=== PATIENT | female | born 1965 | race American Indian/Alaskan Native ===

== ENCOUNTER 2017-08-29 05:52 | Inpatient (IN) | payer OTHER ==
[2017-08-28 13:28] VITALS: BMI 33.7
--- NOTE | 2017-08-29 07:03 | CP.PCM.HP ---
History of Present Illness - History of Present Illness History of Present Illness: PMD: Dr Arvizu Orthopedist: Dr parker Chief Complaint: Left knee pain HPI: 51 years old female here for an elective left Total Knee Replacement. She has hx of HLD, HTN, and painful left knee arthritis since 2012 for which she was treated with intra-arterial injections, Physical therapy, analgesics and had Arthroscopic surgery to the left knee twice but still has pains. Because she has failed conservative management for the left knee arthritis she saw her Orthopedist and will left knee replacement. PSH: HTN; HLD; Arthritis of the left knee PSH: Hysterectomy; Cesarian section X1; Tummy Tuck; Arthroscopic surgery X2 to the left knee SH: Never smoked; Occasional alcohol; No illegal drug use; Live with family; work in [employer]: States: no known family hx Allergies: NDA Mediation: Reviewed Present on Admission - Present on Admission Any Indicators Present on Admission: No History of DVT/PE: No History of Uncontrolled Diabetes: No Urinary Catheter: No Decubitus Ulcer Present: No Review of Systems - Constitutional Constitutional: absent: Anorexia, Chills, Fever, Lethargy - EENT Eyes: Requires Corrective Lenses. absent: Floaters, Itchy Eyes, Sees Flashes Ears: absent: Decreased Hearing, Ear Discharge, Ear Pain Nose/Mouth/Throat: absent: Epistaxis, Nasal Congestion, Sinus Pain, Sinus Pressure - Cardiovascular Cardiovascular: absent: Chest Pain, Dyspnea, Edema - Respiratory Respiratory: absent: Cough, Dyspnea, Wheezing, Stridor - Gastrointestinal Gastrointestinal: absent: Constipation, Diarrhea, Nausea, Vomiting - Genitourinary Genitourinary: absent: Dysuria, Flank Pain, Hematuria, Urinary Frequency - Musculoskeletal Musculoskeletal: Arthralgias - Integumentary Integumentary: absent: Pruritus, Rash, Skin Ulcer, Sores, Striae, Swelling - Neurological Neurological: absent: Confusion, Dizziness, Focal Weakness, Weakness - Psychiatric Psychiatric: absent: Anxiety, Depression, Panic Attacks - Endocrine Endocrine: absent: Palpitations, Polydipsia, Polyphagia, Polyuria - Hematologic/Lymphatic Hematologic: absent: Easy Bleeding, Easy Bruising Past Patient History - Past Medical History & Family History Past Medical History?: Yes - Past Social History Smoking Status: Never Smoked Chewing Tobacco Use: No Cigar Use: No Alcohol: Occasional Home Situation {Lives}: With Family - CARDIAC Hx Cardiac Disorders: Yes Hx Hypertension: Yes - PULMONARY Hx Respiratory Disorders: No - NEUROLOGICAL Hx Neurological Disorder: No - HEENT Hx HEENT Problems: No - RENAL Hx Chronic Kidney Disease: No - ENDOCRINE/METABOLIC Hx Endocrine Disorders: No - HEMATOLOGICAL/ONCOLOGICAL Hx Blood Disorders: No - INTEGUMENTARY Hx Dermatological Problems: No - MUSCULOSKELETAL/RHEUMATOLOGICAL Hx Musculoskeletal Disorders: Yes Hx Arthritis: Yes (knee) - GASTROINTESTINAL Hx Gastrointestinal Disorders: No - GENITOURINARY/GYNECOLOGICAL Hx Genitourinary Disorders: No - PSYCHIATRIC Hx Psychophysiologic Disorder: No - SURGICAL HISTORY Hx Surgeries: Yes Hx Arthroscopy: Yes (left knee) Hx Section: Yes Hx Hysterectomy: Yes Other/Comment: tummy tuck - ANESTHESIA Hx Anesthesia: Yes Hx Anesthesia Reactions: No Has any member of the family had a problem w/ anesthesia?: Yes Meds Allergies/Adverse Reactions: Allergies Allergy/AdvReac Type Severity Reaction Status Date / Time No Known Allergies Allergy Verified 08/28/17 13:28 Physical Exam - Constitutional Appears: No Acute Distress - Head Exam Head Exam: ATRAUMATIC, NORMAL INSPECTION, NORMOCEPHALIC - Eye Exam Eye Exam: EOMI, Normal appearance Pupil Exam: NORMAL ACCOMODATION, PERRL - ENT Exam ENT Exam: Mucous Membranes Moist, Normal Exam - Neck Exam Neck exam: Positive for: Full Rom, Normal Inspection. Negative for: Lymphadenopathy, Tenderness - Respiratory Exam Respiratory Exam: Clear to Auscultation Bilateral. absent: Rales, Rhonchi, Wheezes - Cardiovascular Exam Cardiovascular Exam: REGULAR RHYTHM, RRR, +S1, +S2. absent: Gallop - GI/Abdominal Exam GI & Abdominal Exam: Normal Bowel Sounds, Soft. absent: Mass, Organomegaly, Tenderness - Rectal Exam Rectal Exam: Deferred - Extremities Exam Extremities exam: Positive for: full ROM, normal inspection. Negative for: calf tenderness, pedal edema - Back Exam Back exam: NORMAL INSPECTION. absent: CVA tenderness (L), CVA tenderness (R) - Neurological Exam Neurological exam: Alert, CN II-XII Intact, Oriented x3, Reflexes Normal - Psychiatric Exam Psychiatric exam: Normal Affect, Normal Mood - Skin Skin Exam: Dry, Intact, Normal Color, Warm Results - Labs Result Diagrams: 08/29/17 06:40 Assessment & Plan - Assessment and Plan (Free Text) Assessment: #. Osteoarthritis of the left Knee #. HTN #. HLD Plan: 51 years old female here for an elective left Total Knee Replacement. She has hx of HLD, HTN, and painful left knee arthritis since 2012. Because she has failed conservative management for the left knee arthritis she saw her Orthopedist and will left knee replacement. #. Osteoarthritis of the left Knee - Consult Orthopedic Dr Parker - Orthopedic management #. HTN - Lisinopril - follow Blood Presires #. HLD - Simvastatin #. DVT management with Lovenox startind08/29/17 #. Code Status: Full - Date & Time Date: 08/29/17 Time: 07:03
[2017-08-29 07:08] LABS: BASO % 0.7 % (0.0-2.0); EOS # 0.2 K/uL (0.0-0.7); EOS % 4.4 % (0.0-4.0); HEMOGLOBIN 12.9 g/dL (12.0-16.0); LYMPH # 1.3 K/uL (1.0-4.3); LYMPH % 33.1 % (20.0-40.0); MEAN CELL VOLUME 85.8 fl (81.0-99.0); MEAN CORPUSCULAR HEMOGLOBIN 28.1 pg (27.0-31.0); MEAN CORPUSCULAR HGB CONC 32.7 g/dL (33.0-37.0); MEAN PLATELET VOLUME 8.1 fl (7.2-11.7); MONO # 0.5 K/uL (0.0-0.8); MONO % 13.9 % (0.0-10.0); NEUT # 1.9 K/uL (1.8-7.0); NEUT % 47.9 % (50.0-75.0); NRBC % 0.2 % (0.0-0.0); RBC 4.61 Mil/uL (3.80-5.20); RED CELL DISTRIBUTION WIDTH 14.5 % (11.5-14.5); WHITE BLOOD COUNT 3.9 K/uL (4.8-10.8)
[2017-08-29] MEDS ORDERED: Midazolam 2 MG/2 ML VIAL ONE (09:02)
[2017-08-29] MEDS ORDERED: Propofol 10 mg/ml Inj (20 ML) ONE (09:02)
[2017-08-29] MEDS ORDERED: Rocuronium 10 mg/ml (5 ml) ONE ×3 (09:03→11:18)
[2017-08-29] MEDS ORDERED: Neostigmine 1:1000 (1 mg/ml) Inj ONE (09:03)
[2017-08-29] MEDS ORDERED: Lidocaine 4% (Laryng-O-Jet) Kit MM ONE (09:03)
[2017-08-29] MEDS ORDERED: Succinylcholine 200 mg/10 ml Inj IV ONE (09:03)
[2017-08-29] MEDS ORDERED: Sevoflurane - Inhalation Anesthetic Liq (250 ml) ONE (09:07)
[2017-08-29] MEDS ORDERED: Lactated Ringer's 1,000 ML IV ONE ×3 (09:15→10:15)
[2017-08-29] MEDS ORDERED: methylPREDNISolone Depo 80 mg/ml Inj ONE (09:36)
[2017-08-29] MEDS ORDERED: Bacitracin Ointment 30 GM TUBE ONE (09:37)
[2017-08-29] MEDS ORDERED: Absorbable Gelatin Sponge Size 100 ONE (09:38)
[2017-08-29] MEDS ORDERED: Thrombin Topical 5,000 Int Units Spray Kit ONE (09:38)
[2017-08-29] MEDS ORDERED: Phenylephrine 10 mg/ml Inj ONE (10:29)
[2017-08-29] MEDS ORDERED: Morphine 4 MG/ML VIAL IVP STA (13:28)
[2017-08-29] MEDS ORDERED: Morphine 4 MG/ML VIAL ONE (13:36)
[2017-08-29] MEDS ORDERED: Lactated Ringer's 1,000 ML IV SCH (13:45)
--- NOTE | 2017-08-29 14:47 | RAD ---
PROCEDURE: Left Knee Radiographs. HISTORY: Pain. COMPARISON: None. FINDINGS: The patient is status post total left knee arthroplasty with prosthetic components seen in good alignment. A small amount expected air and fluid is seen within suprapatellar bursa. Skin kenneth are seen anteriorly. IMPRESSION: Status post total left knee arthroplasty.
[2017-08-29 15:30] LABS: ALB/GLOB RATIO 0.9 (1.0-2.1); ALBUMIN 3.6 g/dL (3.5-5.0); ALT/SGPT 43 U/L (9-52); AST/SGOT 39 U/L (14-36); BLOOD UREA NITROGEN 15 mg/dl (7-17); CALCIUM 9.9 mg/dL (8.4-10.2); GFR AFRICAN-AMERICAN > 60; GFR NON-AFRICAN AMERICAN 53
[2017-08-29] MEDS: Lactated Ringer's 1,000 ML IV SCH (16:52)
--- NOTE | 2017-08-29 17:00 | PCM.SURG1 ---
Surgeon's Initial Post Op Note - Surgeon's Notes Surgeon: Keith Helpdesk Analyst: LUIS Kuo/ 2nd assist Shay Sharp Type of Anesthesia: General Endo, Spinal Anesthesia Administered By: DR webb Pre-Operative Diagnosis: severe tricompartmental O/A L knee. morbid obesity Operative Findings: severe tricomparmtnetal O/A L knee. tricomp[artmental synovitis. posterior capsule contracture. lateral patella contracture Post-Operative Diagnosis: as above Operation Performed: L TKR. anterior/post synovectomy. posterior capsule release. lateral patella release. computer navigatioapplx wound vac ([place]) drain Specimen/Specimens Removed: synovium/cartilage/bone Estimated Blood Loss: EBL {In ML}: 35 Blood Products Given: N/A Drains Used: Wound Vac Post-Op Condition: Good Date of Surgery/Procedure: 08/29/17 Time of Surgery/Procedure: 10:30 ( time in room 9:38/anesthesia indcution time 9 :38)
[2017-08-29] MEDS: ceFAZolin 2 GM in Sodium Chloride 0.9% 100 ML IVPB SCH (18:28)
[2017-08-30] MEDS: ceFAZolin 2 GM in Sodium Chloride 0.9% 100 ML IVPB SCH (01:26)
[2017-08-30] MEDS: Lactated Ringer's 1,000 ML IV SCH ×3 (01:28→19:36)
[2017-08-30 07:12] LABS: HEMOGLOBIN 11.4 g/dL (12.0-16.0); MEAN CELL VOLUME 85.8 fl (81.0-99.0); MEAN CORPUSCULAR HEMOGLOBIN 27.6 pg (27.0-31.0); MEAN CORPUSCULAR HGB CONC 32.2 g/dL (33.0-37.0); RBC 4.12 Mil/uL (3.80-5.20); RED CELL DISTRIBUTION WIDTH 14.8 % (11.5-14.5); WHITE BLOOD COUNT 5.2 K/uL (4.8-10.8)
[2017-08-30 07:33] LABS: BLOOD UREA NITROGEN 12 mg/dl (7-17); CALCIUM 9.5 mg/dL (8.4-10.2); GFR AFRICAN-AMERICAN > 60; GFR NON-AFRICAN AMERICAN > 60
[2017-08-30] MEDS: Enoxaparin 40 mg Syringe SC SCH (08:33)
--- NOTE | 2017-08-30 08:37 | CP.PCM.PN ---
Subjective - Date & Time of Evaluation Date of Evaluation: 08/30/17 Time of Evaluation: 10:00 - Subjective Subjective: Patient seen and examined bedside. Lying in bed in NAD.pain is controlled. on POINT OF SALE ASSOCIATE pump and appears sleepy. Hemodynamically stable, afebrile. unable to sleep overnight. Objective - Vital Signs/Intake and Output Vital Signs (last 24 hours): Temp Pulse Resp BP Pulse Ox 98.8 F 74 20 112/67 97 08/30/17 07:59 08/30/17 07:59 08/30/17 07:59 08/30/17 07:59 08/30/17 07:59 - Medications Medications: Current Medications Acetaminophen (Tylenol 325mg Tab) 650 mg PO Q4 PRN PRN Reason: Fever 101 degrees fahrenheit Docusate Sodium (Colace) 100 mg PO BID [facility] Last Admin: 08/30/17 08:33 Dose: 100 mg Enoxaparin Sodium (Lovenox) 40 mg SC DAILY [facility] PRN Reason: Protocol Last Admin: 08/30/17 08:33 Dose: 40 mg Lactated Ringer's (Lactated Ringer's) 1,000 mls @ 100 mls/hr IV .Q10H [facility] Last Admin: 08/30/17 01:28 Dose: 100 mls/hr Lactated Ringer's (Lactated Ringer's) 1,000 mls @ 100 mls/hr IV .Q10H [facility] Last Admin: 08/29/17 16:53 Dose: Not Given Morphine Sulfate (Morphine Manager Floral 1 Mg/Ml) 30 mg IV PRN PRN; Protocol PRN Reason: Pain, moderate (4-7) Last Admin: 08/30/17 07:43 Dose: 30 mg Ondansetron HCl (Zofran Inj) 4 mg IVP ONCE PRN PRN Reason: Nausea/Vomiting - Labs Labs: 08/30/17 05:50 08/30/17 05:50 - Constitutional Appears: Non-toxic, No Acute Distress, Other (sleepy) - Head Exam Head Exam: ATRAUMATIC, NORMAL INSPECTION, NORMOCEPHALIC - Eye Exam Eye Exam: EOMI, Normal appearance, PERRL Pupil Exam: NORMAL ACCOMODATION - ENT Exam ENT Exam: Mucous Membranes Moist, Normal Exam - Neck Exam Neck Exam: Full ROM, Normal Inspection - Respiratory Exam Respiratory Exam: Clear to Ausculation Bilateral. absent: Rales, Rhonchi, Wheezes - Cardiovascular Exam Cardiovascular Exam: REGULAR RHYTHM, RRR, +S1, +S2. absent: JVD - GI/Abdominal Exam GI & Abdominal Exam: Soft, Normal Bowel Sounds. absent: Distended, Guarding, Tenderness, Rebound - Rectal Exam Rectal Exam: Deferred - Extremities Exam Additional comments: left leg dressing and immobilizer in place moving her toes and warm to touch - Back Exam Back Exam: NORMAL INSPECTION - Neurological Exam Neurological Exam: Alert, Awake, CN II-XII Intact, Oriented x3 Additional comments: sleepy - Psychiatric Exam Psychiatric exam: Normal Affect - Skin Skin Exam: Dry, Normal Color, Warm Assessment and Plan - Assessment and Plan (Free Text) Assessment: 51 years old femalewith PMH HTN, duylipidemia and OA presented for elective left Total Knee Replacement after failing conservative treatment.Today post op # 1 , on POINT OF SALE ASSOCIATE pump . 1. S/p Left TKR # 1 pain is controlled. Will d/c POINT OF SALE ASSOCIATE pump and start Percoset PRN PT consult Promote ambulation Ortho consult with Dr. Parker on Board received Ancef IV prophylactically Strat incentive spirometry Lovenox for DVT prophylaxis 2. HTN controlled Continue Lisinopril 3. HLD on Simvastatin 4. DVT prophylaxis Lovenox
[2017-08-30] MEDS ORDERED: Petrolatum, White 1 OZ TP SCH (09:00)
[2017-08-30] MEDS ORDERED: Enoxaparin 40 mg Syringe SC SCH (09:00)
--- NOTE | 2017-08-30 11:24 | CP.PCM.PN ---
Subjective - Date & Time of Evaluation Date of Evaluation: 08/30/17 Time of Evaluation: 11:24 - Subjective Subjective: Patient seen and examined at bedside comfortable. Pain controlled with GRANITE SETTER. Knee imm on overnight. No acute events overnight. Objective - Vital Signs/Intake and Output Vital Signs (last 24 hours): Temp Pulse Resp BP Pulse Ox 98.8 F 74 20 112/67 97 08/30/17 07:59 08/30/17 07:59 08/30/17 07:59 08/30/17 07:59 08/30/17 07:59 - Medications Medications: Current Medications Acetaminophen (Tylenol 325mg Tab) 650 mg PO Q4 PRN PRN Reason: Fever 101 degrees fahrenheit Docusate Sodium (Colace) 100 mg PO BID [facility] Last Admin: 08/30/17 08:33 Dose: 100 mg Emollient Ointment (Vaseline Oint) 1 pkt TOP QID [facility] Enoxaparin Sodium (Lovenox) 40 mg SC DAILY [facility] PRN Reason: Protocol Last Admin: 08/30/17 08:33 Dose: 40 mg Lactated Ringer's (Lactated Ringer's) 1,000 mls @ 100 mls/hr IV .Q10H [facility] Last Admin: 08/30/17 01:28 Dose: 100 mls/hr Lactated Ringer's (Lactated Ringer's) 1,000 mls @ 100 mls/hr IV .Q10H [facility] Last Admin: 08/29/17 16:53 Dose: Not Given Ondansetron HCl (Zofran Inj) 4 mg IVP ONCE PRN PRN Reason: Nausea/Vomiting Oxycodone/Acetaminophen (Percocet 5/325 Mg Tab) 1 tab PO Q4 PRN PRN Reason: Pain, moderate (4-7) Stop: 09/02/17 08:58 Oxycodone/Acetaminophen (Percocet 5/325 Mg Tab) 2 tab PO Q6 PRN PRN Reason: Pain, severe (8-10) Stop: 09/02/17 08:58 - Labs Labs: 08/30/17 05:50 08/30/17 05:50 - Extremities Exam Additional comments: L knee: Knee imm intact, dressings CDI sensation intact SP/DP/TN motor intact EHL/FHL/TA/G pedal pulses intact comp soft NT Assessment and Plan (1) Left knee DJD Assessment & Plan: POD #1 s/p L TKA doing well -CPM x 6 hrs daily as per order -knee imm only at night or at rest in bed -pain control, recommend d/c GRANITE SETTER and transition to oral meds -complete postop abx -PT/OT WBAT -d/c planning -above d/w Dr. Parker in agreement Status: Acute
[2017-08-30] MEDS: Petrolatum UD PAK TOP SCH ×4 (12:12→21:19)
[2017-08-30] MEDS: Oxycodone/Acetaminophen 5/325 mg Tab PO PRN ×3 (12:26→21:18)
[2017-08-31] MEDS: Oxycodone/Acetaminophen 5/325 mg Tab PO PRN ×3 (02:22→14:07)
[2017-08-31] MEDS: Lactated Ringer's 1,000 ML IV SCH (04:45)
[2017-08-31 06:33] LABS: MEAN CELL VOLUME 85.1 fl (81.0-99.0); MEAN CORPUSCULAR HEMOGLOBIN 28.1 pg (27.0-31.0); MEAN CORPUSCULAR HGB CONC 33.1 g/dL (33.0-37.0); RBC 3.91 Mil/uL (3.80-5.20); RED CELL DISTRIBUTION WIDTH 14.5 % (11.5-14.5); WHITE BLOOD COUNT 5.5 K/uL (4.8-10.8)
[2017-08-31 06:46] LABS: BLOOD UREA NITROGEN 9 mg/dl (7-17); CALCIUM 9.6 mg/dL (8.4-10.2); GFR AFRICAN-AMERICAN > 60; GFR NON-AFRICAN AMERICAN > 60
[2017-08-31] MEDS: Enoxaparin 40 mg Syringe SC SCH (08:10)
[2017-08-31 08:11] VITALS: PULSE 89; RESP 20
[2017-08-31] MEDS: Petrolatum UD PAK TOP SCH ×3 (08:11→17:05)
--- NOTE | 2017-08-31 08:22 | OP ---
PROCEDURE DATE: 08/29/2017 PREOPERATIVE DIAGNOSES: 1. Post-traumatic osteoarthritis of the left knee. 2. Tricompartmental osteoarthritis of the left knee. 3. Posterior capsular contracture. 4. Anterior and posterior synovitis. POSTOPERATIVE DIAGNOSES: 1. Post-traumatic osteoarthritis of the left knee. 2. Tricompartmental osteoarthritis of the left knee. 3. Posterior capsular contracture. 4. Anterior and posterior synovitis. OPERATIVE FINDINGS: 1. Post-traumatic osteoarthritis of the left knee. 2. Tricompartmental osteoarthritis of the left knee. 3. Posterior capsular contracture. 4. Anterior and posterior synovitis. PROCEDURE: 1. Left total knee replacement arthroplasty. 2. Posterior capsular release. 3. Anterior and posterior synovectomy. 4. Computer navigation. SURGEON: Wade Parker MD METAL MOLDER: Pauly Lee, certified registered nursing welder first class. SECOND POLICE COMMISSIONER: Shay Moore PA-C ANESTHESIA: General and regional anesthesia. ANESTHESIOLOGIST: Anthony Colvin MD COMPLICATIONS: No complications. DRAINS: No drains. BLOOD LOSS: Approximately 60 mL. OPERATIVE INDICATIONS: Darrius Loredo is a 51-year-old woman who has had multiple surgical procedures on the left knee. The patient had sustained an injury at work, which had necessitated multiple procedures to the left knee. The patient has developed post-traumatic osteoarthritis. Pros, cons, risks, and benefits of the surgical approach were discussed, the possibility of mechanical failure, infection, thromboembolic disease, secondary or tertiary surgery was discussed. The patient can no longer withstand the discomfort and wished the surgery to be accomplished. The patient has failed conservative management consisting of intra-articular injection, activity modification, weight loss, anti-inflammatory medication, and therapy. The patient demands the surgical procedure. Authorization has been obtained from the Department of Labor. OPERATIVE PROCEDURE: After having obtained informed consent in the above fashion, after thoroughly discussing the possibility of mechanical failure, infection, thromboembolic disease, secondary or tertiary surgery, the patient identified as Darrius Loredo, in the supine position with all bony prominences well padded. The left lower extremity was prepped and free draped in the usual fashion for lower extremity surgery. The tourniquet had been applied, but was not yet inflated. After the satisfactory induction of the anesthetic by Dr. Colvin, after having identified side, site, and procedure, a critical pause/time-out and satisfactory induction of the anesthetic, after having obtained informed consent, with the lower extremity prepped and draped, the lower extremity was exsanguinated after a critical pause/time-out with a 6-inch Esmarch bandage. The tourniquet which had been applied is inflated to 350 mmHg. This having been accomplished, the 6-inch straight midline approach was made to the knee. The skin incision was carried down to the skin and subcutaneous tissue. Medial arthrotomy was accomplished. Patella was everted. The knee was flexed. Dissection was carried around posteromedially to the direct head of the semimembranosus tendon. The tibia was dislocated anteriorly and the initial osteotomy of the arthroplasty was accomplished on the tibial side. Anterior and posterior cruciate ligaments were excised. Medial and lateral meniscectomies were accomplished. A computer navigation for alignment and geometry of the cuts was employed at this point in time. The OrthAlign anterior tibial strut was affixed to the anterior tibia with strap and pins. At this point in time, the sensor was applied and the accelerometer. Varus-valgus was adjusted after registration of the medial and lateral malleoli and after determination of the offset from the posterior insertion of the anterior cruciate ligament. The medial malleolus was identified and lateral malleolus was identified. This having been accomplished, varus-valgus set at 0 degrees, posterior slope 3.5 degrees, an initial osteotomy of the arthroplasty was accomplished on the tibial side. This having been accomplished, again, dissection was carried around to the direct head of the semimembranosus tendon. Anterior posterior cruciate ligaments were excised. The tibial cut was 10 mm below the more intact side. Tibial cut having been accomplished, attention was turned to the femur. The tibia was relocated. The distal cutting guide was applied and sensor and accelerometer for computer navigation were applied to that bracket. This having been accomplished, the hip center was found, and at that point in time, varus-valgus was set to 0 degrees on the mechanical axis and 1 degree of flexion. This having been accomplished, the formal block was sized to a #3, femoral component #3 block was affixed to distal aspect of the femur after the distal cut had been accomplished at 9 mm. Distal cut having been accomplished, sizing is to a number 3, 3 block was fixed distally. Anterior and posterior cuts were accomplished as well as chamfer cuts. Great care was taken to protect the collateral ligaments. This having been accomplished, the anterior and posterior synovectomy at this point in time was accomplished. There had been evidence of posterior capsular contracture, lamina fur mixer operator was applied, and the posterior capsule was released. This having been accomplished, the lugs were drilled for the component, and the notch was milled for the femoral trochlea. This having been accomplished, attention was turned to the tibia, guidance to rotation of the tibial component on the lateral aspect of the tibial condyle, mid malleolar axis, medial third of the tibial tuberosity. This having been accomplished, the appropriate size tibial polyethylene medial pivot was employed because of her young age and medial pivot design or sphere design was employed. The flexion/extension gap was found to be excellent and balanced and the range of motion was found to be excellent. Patella was measured to 28 mm. Freehand patella cut was accomplished, and the patella was reamed to a #2 patella. At this point in time, the patellar balance was found to be excellent. The flexion/extension balance was found to be excellent. The tibia, femur, and patella were prepared, and the appropriate size femoral component was cemented, the tibial component, and the appropriate size polyethylene patella and tibial insert. The medial tibial insert was deployed. The screw was fastened, and it was fixed. The wound was thoroughly irrigated. Closures in layers, #2 FiberWire, #1 Vicryl, 0 Vicryl, 2-0 Vicryl, and kenneth for skin. The tourniquet had been deflated after cementation was accomplished. Kannan Thacker compression dressing and knee immobilizers were applied. Wade Parker MD
--- NOTE | 2017-08-31 12:13 | CP.PCM.PN ---
Subjective - Date & Time of Evaluation Date of Evaluation: 08/31/17 Time of Evaluation: 12:10 - Subjective Subjective: Patient states pain is well controlled, Denies CP/sob/dizziness/numbness/ tingling. Objective - Vital Signs/Intake and Output Vital Signs (last 24 hours): Temp Pulse Resp BP Pulse Ox 99.7 F H 89 20 144/80 96 08/31/17 09:00 08/31/17 09:00 08/31/17 09:00 08/31/17 09:00 08/31/17 09:00 - Medications Medications: Current Medications Acetaminophen (Tylenol 325mg Tab) 650 mg PO Q4 PRN PRN Reason: Fever 101 degrees fahrenheit Docusate Sodium (Colace) 100 mg PO BID [facility] Last Admin: 08/31/17 08:10 Dose: 100 mg Emollient Ointment (Vaseline Oint) 1 pkt TOP QID [facility] Last Admin: 08/31/17 08:11 Dose: 1 pkt Enoxaparin Sodium (Lovenox) 40 mg SC DAILY [facility] PRN Reason: Protocol Last Admin: 08/31/17 08:10 Dose: 40 mg Lactated Ringer's (Lactated Ringer's) 1,000 mls @ 100 mls/hr IV .Q10H [facility] Last Admin: 08/31/17 04:45 Dose: Not Given Ondansetron HCl (Zofran Inj) 4 mg IVP ONCE PRN PRN Reason: Nausea/Vomiting Oxycodone/Acetaminophen (Percocet 5/325 Mg Tab) 1 tab PO Q4 PRN PRN Reason: Pain, moderate (4-7) Stop: 09/02/17 08:58 Last Admin: 08/31/17 08:07 Dose: 1 tab Oxycodone/Acetaminophen (Percocet 5/325 Mg Tab) 2 tab PO Q6 PRN PRN Reason: Pain, severe (8-10) Stop: 09/02/17 08:58 Last Admin: 08/31/17 02:22 Dose: 2 tab - Labs Labs: 08/31/17 05:40 08/31/17 05:40 - Extremities Exam Additional comments: +ROM toes, ensation intact, calves soft NT neg homans, +DP/PT pules left knee dressing changed, scant ssang drainage, marta reapplied, no erythema Assessment and Plan (1) Left knee DJD Assessment & Plan: POD#2 s/p left TKR ortho stable for d/c to rehab cont PT/OT cont VTE proph marta to be left intact until next 09/05 knee immob at night, remove during day d/w Dr. Parker, agrees with above, f/u 7-10 days call for appt if sent to outside rehab Status: Acute
--- NOTE | 2017-08-31 15:00 | CP.PCM.DIS ---
Provider - Provider Date of Admission: 08/29/17 13:36 Attending physician: Phoenix Taylor Primary care physician: Wade Parker III, MD Consults: ortho consult Time Spent in preparation of Discharge (in minutes): 15 Hospital Course - Lab Results Lab Results: Most Recent Lab Values WBC 5.5 K/uL (4.8-10.8) 08/31/17 05:40 RBC 3.91 Mil/uL (3.80-5.20) 08/31/17 05:40 Hgb 11.0 g/dL (12.0-16.0) L 08/31/17 05:40 Hct 33.3 % (34.0-47.0) L 08/31/17 05:40 MCV 85.1 fl (81.0-99.0) 08/31/17 05:40 MCH 28.1 pg (27.0-31.0) 08/31/17 05:40 MCHC 33.1 g/dL (33.0-37.0) 08/31/17 05:40 RDW 14.5 % (11.5-14.5) 08/31/17 05:40 Plt Count 143 K/uL (130-400) 08/31/17 05:40 MPV 8.1 fl (7.2-11.7) 08/29/17 06:40 Neut % (Auto) 47.9 % (50.0-75.0) L 08/29/17 06:40 Lymph % (Auto) 33.1 % (20.0-40.0) 08/29/17 06:40 [place] % (Auto) 13.9 % (0.0-10.0) H 08/29/17 06:40 Eos % (Auto) 4.4 % (0.0-4.0) H 08/29/17 06:40 Baso % (Auto) 0.7 % (0.0-2.0) 08/29/17 06:40 Neut # (Auto) 1.9 K/uL (1.8-7.0) 08/29/17 06:40 Lymph # (Auto) 1.3 K/uL (1.0-4.3) 08/29/17 06:40 [place] # (Auto) 0.5 K/uL (0.0-0.8) 08/29/17 06:40 Eos # (Auto) 0.2 K/uL (0.0-0.7) 08/29/17 06:40 Baso # (Auto) 0.0 K/uL (0.0-0.2) 08/29/17 06:40 Sodium 135 mmol/l (132-148) 08/31/17 05:40 Potassium 3.9 MMOL/L (3.6-5.0) 08/31/17 05:40 Chloride 97 mmol/L (98-107) L 08/31/17 05:40 Carbon Dioxide 29 mmol/L (22-30) 08/31/17 05:40 Anion Gap 13 (10-20) 08/31/17 05:40 BUN 9 mg/dl (7-17) 08/31/17 05:40 Creatinine 0.8 mg/dl (0.7-1.2) 08/31/17 05:40 Est GFR ( Amer) > 60 08/31/17 05:40 Est GFR (Non-Af Amer) > 60 08/31/17 05:40 Random Glucose 112 mg/dL (65-105) H 08/31/17 05:40 Calcium 9.6 mg/dL (8.4-10.2) 08/31/17 05:40 Total Bilirubin 0.7 mg/dl (0.2-1.3) 08/29/17 14:49 AST 39 U/L (14-36) H 08/29/17 14:49 ALT 43 U/L (9-52) 08/29/17 14:49 Alkaline Phosphatase 63 U/L (38-126) 08/29/17 14:49 Total Protein 7.5 G/DL (6.3-8.2) 08/29/17 14:49 Albumin 3.6 g/dL (3.5-5.0) 08/29/17 14:49 Globulin 3.9 gm/dL (2.2-3.9) 08/29/17 14:49 Albumin/Globulin Ratio 0.9 (1.0-2.1) L 08/29/17 14:49 Blood Type O POSITIVE 08/29/17 06:40 Blood Type Confirm O POSITIVE 08/29/17 07:50 Antibody Screen Negative 08/29/17 06:40 BBK History Checked No verified bt 08/29/17 06:40 - Hospital Course Hospital Course: 51 years old female with PMH HTN, dyslipidemia and OA presented for elective left Total Knee Replacement after failing conservative treatment.Today post op # 2 ,doing well. With pain to left knee especially with PT. As per PT patient will benefit from GENE Wuilld/c patient to TCU for PT. Follow up with Dr. Parker in 1 week Keep BRADFORD in place 1. S/p Left TKR # 2 pain is controlled with percoset PRN PT consult appreciated and recommended TCU Promote ambulation Ortho consult with Dr. Parker on Board received Ancef IV prophylactically Continue incentive spirometry Lovenox for DVT prophylaxis D/c to TCU for PT 2. HTN controlled Continue Lisinopril 3. HLD on Simvastatin 4.Obesity BMI 33 5. Post op fever Tmax 100 Most likely secondary to atelectasis Promote incentive spiometry use and ambulation 6. DVT prophylaxis Lovenox Discharge Exam - Head Exam Head Exam: ATRAUMATIC, NORMAL INSPECTION, NORMOCEPHALIC - Eye Exam Eye Exam: EOMI, Normal appearance, PERRL Pupil Exam: NORMAL ACCOMODATION - ENT Exam ENT Exam: Normal Exam - Neck Exam Neck exam: Full Rom, Normal Inspection - Respiratory Exam Respiratory Exam: Clear to PA & Lateral, NORMAL BREATHING PATTERN. absent: Rhonchi, Wheezes, Respiratory Distress - Cardiovascular Exam Cardiovascular Exam: REGULAR RHYTHM, RRR, +S1, +S2. absent: JVD - GI/Abdominal Exam GI & Abdominal Exam: Normal Bowel Sounds, Soft. absent: Distended, Guarding, Rebound, Tenderness - Rectal Exam Rectal Exam: Deferred - Extremities Exam Additional comments: Left knee dressing and immobilizer in place - Back Exam Back exam: NORMAL INSPECTION - Neurological Exam Neurological exam: Alert, CN II-XII Intact, Oriented x3, Reflexes Normal - Psychiatric Exam Psychiatric exam: Normal Affect, Normal Mood - Skin Skin Exam: Dry, Intact, Normal Color, Warm Discharge Plan - Follow Up Plan Condition: GOOD Disposition: TRANSF TO SNF Patient education suggested?: Yes Instructions: Total Knee Replacement (DC) Referrals: Wade Parker III, MD [Primary Care Provider] -
[2017-08-31 16:23] VITALS: BP 124/72; O2SAT 94
[2017-08-31 18:24] VITALS: TEMP 98.9
== END 2017-08-31 21:20 | DRG 470 ==
LOC: H.OPSURG 05:52 → H.MEDSURG1 13:36
PROVIDERS: ADMIT Internal Medicine; ATTEND Internal Medicine
PROC: 0SRD0J9 Replacement of Left Knee Joint with Synthetic Substitute, Cemented, Open Approach (ICD-10-PCS; principal; 2017-08-29 07:45)
DX: M17.32 Unilateral post-traumatic osteoarthritis, left knee (principal); J98.11 Atelectasis; M65.862 Other synovitis and tenosynovitis, left lower leg; R50.82 Postprocedural fever; E66.01 Morbid (severe) obesity due to excess calories; Z68.33 Body mass index [BMI] 33.0-33.9, adult; I10 Essential (primary) hypertension; E78.5 Hyperlipidemia, unspecified

== ENCOUNTER 2017-08-31 22:00 | Inpatient (IN) | payer OTHER ==
[2017-08-31 22:10] VITALS: BMI 35.1
[2017-08-31] MEDS: Oxycodone/Acetaminophen 5/325 mg Tab PO PRN (23:04)
[2017-09-01] MEDS: Oxycodone/Acetaminophen 5/325 mg Tab PO PRN ×3 (06:26→21:55)
[2017-09-01 08:18] VITALS: RESP 20
[2017-09-01 08:21] LABS: INR 1.2 (0.9-1.2); PARTIAL THROMBOPLASTIN TIME 28.4 Seconds (25.6-37.1); PROTHROMBIN TIME 13.4 Seconds (9.8-13.1)
[2017-09-01 08:38] LABS: BLOOD UREA NITROGEN 8 mg/dl (7-17); CALCIUM 9.6 mg/dL (8.4-10.2); GFR AFRICAN-AMERICAN > 60; GFR NON-AFRICAN AMERICAN > 60
[2017-09-01] MEDS: Enoxaparin 40 mg Syringe SC SCH (08:39)
[2017-09-01] MEDS: Petrolatum UD PAK TOP SCH ×3 (08:41→16:36)
[2017-09-01] MEDS ORDERED: BIOTIN 1 MG PO SCH (09:00)
[2017-09-01 09:12] LABS: HEMOGLOBIN 10.9 g/dL (12.0-16.0); MEAN CORPUSCULAR HEMOGLOBIN 28.1 pg (27.0-31.0); MEAN CORPUSCULAR HGB CONC 33.1 g/dL (33.0-37.0); RBC 3.88 Mil/uL (3.80-5.20); RED CELL DISTRIBUTION WIDTH 14.6 % (11.5-14.5); WHITE BLOOD COUNT 4.6 K/uL (4.8-10.8)
[2017-09-01] MEDS ORDERED: Petrolatum UD PAK TOP PRN (16:39)
--- NOTE | 2017-09-01 18:18 | CP.PCM.HP ---
History of Present Illness - History of Present Illness History of Present Illness: 51 years old female with PMH HTN, dyslipidemia and OA presented for elective left Total Knee Replacement after failing conservative treatment. Post op # 3 and doing well. Pt does complain of pain to left knee especially with PT. As per PT patient will benefit from GENE. Admit to TCU for PT. Follow up with Dr. Parker in 1 week. ROS: per HPI all other systems reviewed and negative PSH: HTN; HLD; Arthritis of the left knee PSH: Hysterectomy; Cesarian section X1; Tummy Tuck; Arthroscopic surgery X2 to the left knee SH: Never smoked; Occasional alcohol; No illegal drug use; Live with family; work in [employer] FH: States: no known family hx Allergies: NDA Mediation: Reviewed Vitals Reviewed GEN: WDWN, alert, cooperative HEENT: NCAT, PERRL, EOMI HEART: RRR, +S1S2, NO MRG LUNG: CTAB, NO WRR ABD: soft, NT, ND, No HSM, No masses EXT: normal pedal pulses, normal capillary refill NEURO: awake, alert, no focal deficits SKIN: warm, dry- PSYCH: normal mood, normal affect Most Recent Lab Values WBC 4.6 K/uL (4.8-10.8) L 09/01/17 06:35 RBC 3.88 Mil/uL (3.80-5.20) 09/01/17 06:35 Hgb 10.9 g/dL (12.0-16.0) L 09/01/17 06:35 Hct 33.0 % (34.0-47.0) L 09/01/17 06:35 MCV 85.0 fl (81.0-99.0) 09/01/17 06:35 MCH 28.1 pg (27.0-31.0) 09/01/17 06:35 MCHC 33.1 g/dL (33.0-37.0) 09/01/17 06:35 RDW 14.6 % (11.5-14.5) H 09/01/17 06:35 Plt Count 154 K/uL (130-400) 09/01/17 06:35 PT 13.4 Seconds (9.8-13.1) H 09/01/17 06:35 INR 1.2 (0.9-1.2) 09/01/17 06:35 APTT 28.4 Seconds (25.6-37.1) 09/01/17 06:35 Sodium 137 mmol/l (132-148) 09/01/17 06:35 Potassium 4.0 MMOL/L (3.6-5.0) 09/01/17 06:35 Chloride 97 mmol/L (98-107) L 09/01/17 06:35 Carbon Dioxide 29 mmol/L (22-30) 09/01/17 06:35 Anion Gap 15 (10-20) 09/01/17 06:35 BUN 8 mg/dl (7-17) 09/01/17 06:35 Creatinine 0.8 mg/dl (0.7-1.2) 09/01/17 06:35 Est GFR ( Amer) > 60 09/01/17 06:35 Est GFR (Non-Af Amer) > 60 09/01/17 06:35 Random Glucose 92 mg/dL (65-105) 09/01/17 06:35 Calcium 9.6 mg/dL (8.4-10.2) 09/01/17 06:35 51 years old female with PMH HTN, dyslipidemia and OA presented for elective left Total Knee Replacement after failing conservative treatment. Post op # 3 and doing well. Pt does complain of pain to left knee especially with PT. As per PT patient will benefit from GENE. Admit to TCU for PT. Follow up with Dr. Parker in 1 week. 1. S/p Left TKR # 3 pain is controlled with percocet PRN PT consult appreciated and recommended TCU Promote ambulation Ortho consult with Dr. Parker on Board received Ancef IV prophylactically Continue incentive spirometry Lovenox for DVT prophylaxis Admit to TCU for PT 2. HTN controlled Continue Lisinopril 3. HLD on Simvastatin 4.Obesity BMI 33 5. Post op fever Tmax 100 Most likely secondary to atelectasis Promote incentive spirometry use and ambulation 6. DVT prophylaxis Lovenox Present on Admission - Present on Admission Any Indicators Present on Admission: No Past Patient History - Past Medical History & Family History Past Medical History?: Yes - Past Social History Smoking Status: Never Smoked - CARDIAC Hx Hypertension: Yes - PULMONARY Hx Respiratory Disorders: No - NEUROLOGICAL Hx Neurological Disorder: No - HEENT Hx HEENT Problems: No - RENAL Hx Chronic Kidney Disease: No - ENDOCRINE/METABOLIC Hx Endocrine Disorders: No - HEMATOLOGICAL/ONCOLOGICAL Hx Blood Disorders: No Hx AIDS: No Hx Human Immunodeficiency Virus (HIV): No - INTEGUMENTARY Hx Dermatological Problems: No - MUSCULOSKELETAL/RHEUMATOLOGICAL Hx Arthritis: Yes Hx Falls: No - GASTROINTESTINAL Hx Gastrointestinal Disorders: No - GENITOURINARY/GYNECOLOGICAL Hx Genitourinary Disorders: No - PSYCHIATRIC Hx Psychophysiologic Disorder: No Hx Substance Use: No - SURGICAL HISTORY Hx Surgeries: Yes Hx Arthroscopy: Yes (left knee) Hx Section: Yes Hx Hysterectomy: Yes Other/Comment: tummy tuck - ANESTHESIA Hx Anesthesia: Yes Hx Anesthesia Reactions: No Hx Malignant Hyperthermia: No Meds Allergies/Adverse Reactions: Allergies Allergy/AdvReac Type Severity Reaction Status Date / Time No Known Allergies Allergy Verified 08/28/17 13:28 Results - Vital Signs Recent Vital Signs: Last Vital Signs Temp 98.1 F 09/01/17 15:49 Pulse 76 09/01/17 15:49 Resp 20 09/01/17 15:49 BP 125/71 09/01/17 15:49 Pulse Ox 97 09/01/17 15:49 - Labs Result Diagrams: 09/01/17 06:35 09/01/17 06:35 Labs: Laboratory Results - last 24 hr 09/01/17 09/01/17 09/01/17 06:35 06:35 06:35 WBC 4.6 L RBC 3.88 Hgb 10.9 L Hct 33.0 L MCV 85.0 MCH 28.1 MCHC 33.1 RDW 14.6 H Plt Count 154 PT 13.4 H INR 1.2 APTT 28.4 Sodium 137 Potassium 4.0 Chloride 97 L Carbon Dioxide 29 Anion Gap 15 BUN 8 Creatinine 0.8 Est GFR ( Amer) > 60 Est GFR (Non-Af Amer) > 60 Random Glucose 92 Calcium 9.6
--- NOTE | 2017-09-01 20:30 | CP.PCM.CON ---
History of Present Illness - History of Present Illness History of Present Illness: 51 year old female had a left knee replacement, with history of Oa, HTn, dyslipidemia Review of Systems - Musculoskeletal Musculoskeletal: Abnormal Gait, Limited Range of Motion, Muscle Weakness Past Patient History - Past Medical History & Family History Past Medical History?: Yes - Past Social History Smoking Status: Never Smoked - CARDIAC Hx Hypertension: Yes - PULMONARY Hx Respiratory Disorders: No - NEUROLOGICAL Hx Neurological Disorder: No - HEENT Hx HEENT Problems: No - RENAL Hx Chronic Kidney Disease: No - ENDOCRINE/METABOLIC Hx Endocrine Disorders: No - HEMATOLOGICAL/ONCOLOGICAL Hx Blood Disorders: No Hx AIDS: No Hx Human Immunodeficiency Virus (HIV): No - INTEGUMENTARY Hx Dermatological Problems: No - MUSCULOSKELETAL/RHEUMATOLOGICAL Hx Arthritis: Yes Hx Falls: No - GASTROINTESTINAL Hx Gastrointestinal Disorders: No - GENITOURINARY/GYNECOLOGICAL Hx Genitourinary Disorders: No - PSYCHIATRIC Hx Psychophysiologic Disorder: No Hx Substance Use: No - SURGICAL HISTORY Hx Surgeries: Yes Hx Arthroscopy: Yes (left knee) Hx Section: Yes Hx Hysterectomy: Yes Other/Comment: tummy tuck - ANESTHESIA Hx Anesthesia: Yes Hx Anesthesia Reactions: No Hx Malignant Hyperthermia: No Meds Allergies/Adverse Reactions: Allergies Allergy/AdvReac Type Severity Reaction Status Date / Time No Known Allergies Allergy Verified 08/28/17 13:28 - Medications Medications: Current Medications Acetaminophen (Tylenol 325mg Tab) 650 mg PO Q4 PRN PRN Reason: Fever 101 degrees fahrenheit Acetaminophen (Tylenol 325mg Tab) 650 mg PO Q4 PRN PRN Reason: Pain, Mild (1-3) Last Admin: 09/01/17 16:35 Dose: 650 mg Diphenhydramine HCl (Benadryl) 25 mg PO HS PRN PRN Reason: Itching / Pruritus Docusate Sodium (Colace) 100 mg PO BID [facility] Last Admin: 09/01/17 16:35 Dose: 100 mg Emollient Ointment (Vaseline Oint) 1 pkt TOP QID PRN PRN Reason: dry lips Enoxaparin Sodium (Lovenox) 40 mg SC DAILY [facility] PRN Reason: Protocol Last Admin: 09/01/17 08:39 Dose: 40 mg Home Med (Biotin [Biotin]) 1 mg PO DAILY [facility] Hydrochlorothiazide (Hydrodiuril) 25 mg PO DAILY [facility] Lisinopril (Zestril) 20 mg PO DAILY [facility] Oxycodone/Acetaminophen (Percocet 5/325 Mg Tab) 1 tab PO Q4 PRN PRN Reason: Pain, moderate (4-7) Stop: 09/03/17 22:45 Oxycodone/Acetaminophen (Percocet 5/325 Mg Tab) 2 tab PO Q4 PRN PRN Reason: Pain, severe (8-10) Stop: 09/04/17 13:01 Last Admin: 09/01/17 10:53 Dose: 2 tab Physical Exam - Head Exam Head Exam: ATRAUMATIC, NORMAL INSPECTION, NORMOCEPHALIC - Eye Exam Eye Exam: EOMI, Normal appearance, PERRL Pupil Exam: NORMAL ACCOMODATION, PERRL - ENT Exam ENT Exam: Mucous Membranes Moist, Normal Exam - Neck Exam Neck exam: Positive for: Normal Inspection - Respiratory Exam Respiratory Exam: Clear to Auscultation Bilateral, NORMAL BREATHING PATTERN - Cardiovascular Exam Cardiovascular Exam: REGULAR RHYTHM - GI/Abdominal Exam GI & Abdominal Exam: Normal Bowel Sounds - Rectal Exam Rectal Exam: NORMAL INSPECTION - Exam External exam: NORMAL EXTERNAL EXAM - Extremities Exam Extremities exam: Positive for: normal inspection Additional comments: left leg weakness - Back Exam Back exam: NORMAL INSPECTION - Neurological Exam Neurological exam: Alert, CN II-XII Intact - Psychiatric Exam Psychiatric exam: Normal Affect - Skin Skin Exam: Dry, Normal Color Results - Vital Signs Recent Vital Signs: Last Vital Signs Temp 98.1 F 09/01/17 19:36 Pulse 85 09/01/17 19:36 Resp 20 09/01/17 19:36 BP 109/67 09/01/17 19:36 Pulse Ox 96 09/01/17 19:36 - Labs Result Diagrams: 09/01/17 06:35 09/01/17 06:35 Labs: Laboratory Results - last 24 hr 09/01/17 09/01/17 09/01/17 06:35 06:35 06:35 WBC 4.6 L RBC 3.88 Hgb 10.9 L Hct 33.0 L MCV 85.0 MCH 28.1 MCHC 33.1 RDW 14.6 H Plt Count 154 PT 13.4 H INR 1.2 APTT 28.4 Sodium 137 Potassium 4.0 Chloride 97 L Carbon Dioxide 29 Anion Gap 15 BUN 8 Creatinine 0.8 Est GFR ( Amer) > 60 Est GFR (Non-Af Amer) > 60 Random Glucose 92 Calcium 9.6 Assessment & Plan (1) Left knee DJD Assessment and Plan: left TKR, OR, HTN, dyslipidemia for range of motion, strenghtening transfers and gait training Quad strengthening CPM monitor skin Status: Acute
[2017-09-02] MEDS: Oxycodone/Acetaminophen 5/325 mg Tab PO PRN ×5 (02:14→21:25)
[2017-09-02] MEDS: Enoxaparin 40 mg Syringe SC SCH (09:24)
[2017-09-03] MEDS: Oxycodone/Acetaminophen 5/325 mg Tab PO PRN ×5 (03:44→23:20)
[2017-09-03] MEDS: Enoxaparin 40 mg Syringe SC SCH (08:30)
--- NOTE | 2017-09-03 14:12 | CP.PCM.PN ---
Subjective - Date & Time of Evaluation Date of Evaluation: 09/03/17 Time of Evaluation: 12:00 - Subjective Subjective: patient with left leg weakness Objective - Vital Signs/Intake and Output Vital Signs (last 24 hours): Temp Pulse Resp BP Pulse Ox 98.4 F 83 20 129/71 98 09/03/17 08:03 09/03/17 08:30 09/03/17 08:03 09/03/17 08:30 09/03/17 08:03 - Medications Medications: Current Medications Acetaminophen (Tylenol 325mg Tab) 650 mg PO Q4 PRN PRN Reason: Fever 101 degrees fahrenheit Acetaminophen (Tylenol 325mg Tab) 650 mg PO Q4 PRN PRN Reason: Pain, Mild (1-3) Last Admin: 09/01/17 16:35 Dose: 650 mg Diphenhydramine HCl (Benadryl) 25 mg PO HS PRN PRN Reason: Itching / Pruritus Last Admin: 09/02/17 21:25 Dose: 25 mg Docusate Sodium (Colace) 100 mg PO BID [facility] Last Admin: 09/03/17 08:31 Dose: 100 mg Emollient Ointment (Vaseline Oint) 1 pkt TOP QID PRN PRN Reason: dry lips Enoxaparin Sodium (Lovenox) 40 mg SC DAILY [facility] PRN Reason: Protocol Last Admin: 09/03/17 08:30 Dose: 40 mg Home Med (Biotin [Biotin]) 1 mg PO DAILY [facility] Hydrochlorothiazide (Hydrodiuril) 25 mg PO DAILY [facility] Last Admin: 09/03/17 08:30 Dose: 25 mg Lisinopril (Zestril) 20 mg PO DAILY [facility] Last Admin: 09/03/17 08:30 Dose: 20 mg Oxycodone/Acetaminophen (Percocet 5/325 Mg Tab) 1 tab PO Q4 PRN PRN Reason: Pain, moderate (4-7) Stop: 09/03/17 22:45 Last Admin: 09/03/17 03:44 Dose: 1 tab Oxycodone/Acetaminophen (Percocet 5/325 Mg Tab) 2 tab PO Q4 PRN PRN Reason: Pain, severe (8-10) Stop: 09/04/17 13:01 Last Admin: 09/03/17 10:03 Dose: 2 tab - Labs Labs: 09/01/17 06:35 09/01/17 06:35 PT 13.4 Seconds (9.8-13.1) H 09/01/17 06:35 INR 1.2 (0.9-1.2) 09/01/17 06:35 APTT 28.4 Seconds (25.6-37.1) 09/01/17 06:35 - Head Exam Head Exam: ATRAUMATIC, NORMAL INSPECTION, NORMOCEPHALIC - Eye Exam Eye Exam: EOMI, Normal appearance Pupil Exam: NORMAL ACCOMODATION, PERRL - ENT Exam ENT Exam: Mucous Membranes Moist, Normal Exam - Neck Exam Neck Exam: Full ROM, Normal Inspection - Respiratory Exam Respiratory Exam: Clear to Ausculation Bilateral, NORMAL BREATHING PATTERN - Cardiovascular Exam Cardiovascular Exam: REGULAR RHYTHM - GI/Abdominal Exam GI & Abdominal Exam: Soft, Normal Bowel Sounds - Exam External exam: NORMAL EXTERNAL EXAM - Extremities Exam Extremities Exam: Normal Capillary Refill, Normal Inspection Additional comments: left knee status post surgery limited ROM , strength for therapy - Back Exam Back Exam: NORMAL INSPECTION - Neurological Exam Neurological Exam: Alert, Awake Neuro motor strength exam: Left Upper Extremity: 4, Right Upper Extremity: 4, Left Lower Extremity: 3, Right Lower Extremity: 4 - Psychiatric Exam Psychiatric exam: Normal Affect, Normal Mood - Skin Skin Exam: Dry, Normal Color, Warm Assessment and Plan (1) Left knee DJD Assessment & Plan: status post left knee replacement for quad strengthening, transfers and gait training, continue with CPM, physical, occupational therapy program Status: Acute
--- NOTE | 2017-09-03 15:58 | CP.PCM.PN ---
Subjective - Date & Time of Evaluation Date of Evaluation: 09/03/17 Time of Evaluation: 14:00 - Subjective Subjective: Patient seen and examined OOB to chair in PT. Pain is well controlled. Tolerating exercises. No new complaints. Objective - Vital Signs/Intake and Output Vital Signs (last 24 hours): Temp Pulse Resp BP Pulse Ox 98.4 F 83 20 129/71 98 09/03/17 08:03 09/03/17 08:30 09/03/17 08:03 09/03/17 08:30 09/03/17 08:03 - Medications Medications: Current Medications Acetaminophen (Tylenol 325mg Tab) 650 mg PO Q4 PRN PRN Reason: Fever 101 degrees fahrenheit Acetaminophen (Tylenol 325mg Tab) 650 mg PO Q4 PRN PRN Reason: Pain, Mild (1-3) Last Admin: 09/01/17 16:35 Dose: 650 mg Diphenhydramine HCl (Benadryl) 25 mg PO HS PRN PRN Reason: Itching / Pruritus Last Admin: 09/02/17 21:25 Dose: 25 mg Docusate Sodium (Colace) 100 mg PO BID [facility] Last Admin: 09/03/17 08:31 Dose: 100 mg Emollient Ointment (Vaseline Oint) 1 pkt TOP QID PRN PRN Reason: dry lips Enoxaparin Sodium (Lovenox) 40 mg SC DAILY [facility] PRN Reason: Protocol Last Admin: 09/03/17 08:30 Dose: 40 mg Home Med (Biotin [Biotin]) 1 mg PO DAILY [facility] Hydrochlorothiazide (Hydrodiuril) 25 mg PO DAILY [facility] Last Admin: 09/03/17 08:30 Dose: 25 mg Lisinopril (Zestril) 20 mg PO DAILY [facility] Last Admin: 09/03/17 08:30 Dose: 20 mg Oxycodone/Acetaminophen (Percocet 5/325 Mg Tab) 1 tab PO Q4 PRN PRN Reason: Pain, moderate (4-7) Stop: 09/03/17 22:45 Last Admin: 09/03/17 03:44 Dose: 1 tab Oxycodone/Acetaminophen (Percocet 5/325 Mg Tab) 2 tab PO Q4 PRN PRN Reason: Pain, severe (8-10) Stop: 09/04/17 13:01 Last Admin: 09/03/17 14:26 Dose: 2 tab - Labs Labs: 09/01/17 06:35 09/01/17 06:35 PT 13.4 Seconds (9.8-13.1) H 09/01/17 06:35 INR 1.2 (0.9-1.2) 09/01/17 06:35 APTT 28.4 Seconds (25.6-37.1) 09/01/17 06:35 - Extremities Exam Additional comments: L knee: BRADFORD dressing intact with mild dry serous drainage. minimal tenderness. mild-mod swelling sensation intact SP/DP/TN motor intact EHL/FHL/TA/G/Q/HS/HF pedal pulses intact comp soft NT Assessment and Plan (1) Left knee DJD Assessment & Plan: POD# 5 s/p L TKA doing well. -PT/OT WBAT -CPM as per order -knee imm while in bed -BRADFORD dressing intact, may remove on Sunday -orthopedically stable -above d/w Dr. Parker in agreement Status: Acute
[2017-09-04] MEDS: Oxycodone/Acetaminophen 5/325 mg Tab PO PRN ×5 (05:28→23:38)
[2017-09-04] MEDS: Enoxaparin 40 mg Syringe SC SCH (08:34)
--- NOTE | 2017-09-04 14:18 | CP.PCM.PN ---
Subjective - Date & Time of Evaluation Date of Evaluation: 09/04/17 Time of Evaluation: 11:00 - Subjective Subjective: Patient seen and examined. She claimed pain is more tolerable. Objective - Vital Signs/Intake and Output Vital Signs (last 24 hours): Temp Pulse Resp BP Pulse Ox 97.7 F 81 20 126/80 93 L 09/04/17 08:53 09/04/17 08:53 09/04/17 08:53 09/04/17 08:53 09/04/17 08:53 - Medications Medications: Current Medications Acetaminophen (Tylenol 325mg Tab) 650 mg PO Q4 PRN PRN Reason: Fever 101 degrees fahrenheit Acetaminophen (Tylenol 325mg Tab) 650 mg PO Q4 PRN PRN Reason: Pain, Mild (1-3) Last Admin: 09/01/17 16:35 Dose: 650 mg Diphenhydramine HCl (Benadryl) 25 mg PO HS PRN PRN Reason: Itching / Pruritus Last Admin: 09/02/17 21:25 Dose: 25 mg Docusate Sodium (Colace) 100 mg PO BID [facility] Last Admin: 09/04/17 08:34 Dose: 100 mg Emollient Ointment (Vaseline Oint) 1 pkt TOP QID PRN PRN Reason: dry lips Enoxaparin Sodium (Lovenox) 40 mg SC DAILY [facility] PRN Reason: Protocol Last Admin: 09/04/17 08:34 Dose: 40 mg Hydrochlorothiazide (Hydrodiuril) 25 mg PO DAILY [facility] Last Admin: 09/04/17 08:35 Dose: 25 mg Lisinopril (Zestril) 20 mg PO DAILY [facility] Last Admin: 09/04/17 08:35 Dose: 20 mg - Labs Labs: 09/01/17 06:35 09/01/17 06:35 PT 13.4 Seconds (9.8-13.1) H 09/01/17 06:35 INR 1.2 (0.9-1.2) 09/01/17 06:35 APTT 28.4 Seconds (25.6-37.1) 09/01/17 06:35 - Constitutional Appears: No Acute Distress - Head Exam Head Exam: ATRAUMATIC - Eye Exam Eye Exam: absent: Scleral icterus - ENT Exam ENT Exam: Mucous Membranes Moist - Neck Exam Neck Exam: absent: Meningismus - Respiratory Exam Respiratory Exam: absent: Rales, Rhonchi, Wheezes, Respiratory Distress - Cardiovascular Exam Cardiovascular Exam: REGULAR RHYTHM, +S1, +S2 - GI/Abdominal Exam GI & Abdominal Exam: Soft. absent: Tenderness - Rectal Exam Rectal Exam: Deferred - Extremities Exam Extremities Exam: absent: Full ROM (limited ROM on left knee) - Neurological Exam Neurological Exam: Alert, Oriented x3 - Psychiatric Exam Psychiatric exam: Normal Affect - Skin Skin Exam: Dry, Intact Assessment and Plan - Assessment and Plan (Free Text) Assessment: 51 yo female with history of HLD, HTN and OA had left TKR on 08/29/2017 after failing conservative management. She was transferred to TCU for continuation of PT. 1. Osteoarthritis of the Left Knee POD # 6 pain well controlled continue PT/OT 2. HTN BP stable continue Lisinopril and HCTZ 3. DVT prophylaxis on Lovenox 40mg SC daily
--- NOTE | 2017-09-04 15:42 | CP.PCM.PN ---
Subjective - Date & Time of Evaluation Date of Evaluation: 09/04/17 Time of Evaluation: 10:00 - Subjective Subjective: no acute complaints of any knee pain Objective - Vital Signs/Intake and Output Vital Signs (last 24 hours): Temp Pulse Resp BP Pulse Ox 97.7 F 81 20 126/80 93 L 09/04/17 08:53 09/04/17 08:53 09/04/17 08:53 09/04/17 08:53 09/04/17 08:53 - Medications Medications: Current Medications Acetaminophen (Tylenol 325mg Tab) 650 mg PO Q4 PRN PRN Reason: Fever 101 degrees fahrenheit Acetaminophen (Tylenol 325mg Tab) 650 mg PO Q4 PRN PRN Reason: Pain, Mild (1-3) Last Admin: 09/01/17 16:35 Dose: 650 mg Diphenhydramine HCl (Benadryl) 25 mg PO HS PRN PRN Reason: Itching / Pruritus Last Admin: 09/02/17 21:25 Dose: 25 mg Docusate Sodium (Colace) 100 mg PO BID [facility] Last Admin: 09/04/17 08:34 Dose: 100 mg Emollient Ointment (Vaseline Oint) 1 pkt TOP QID PRN PRN Reason: dry lips Enoxaparin Sodium (Lovenox) 40 mg SC DAILY [facility] PRN Reason: Protocol Last Admin: 09/04/17 08:34 Dose: 40 mg Hydrochlorothiazide (Hydrodiuril) 25 mg PO DAILY [facility] Last Admin: 09/04/17 08:35 Dose: 25 mg Lisinopril (Zestril) 20 mg PO DAILY [facility] Last Admin: 09/04/17 08:35 Dose: 20 mg Oxycodone/Acetaminophen (Percocet 5/325 Mg Tab) 2 tab PO Q4 PRN PRN Reason: Pain, severe (8-10) Stop: 09/07/17 14:55 Last Admin: 09/04/17 14:57 Dose: 2 tab - Labs Labs: 09/01/17 06:35 09/01/17 06:35 PT 13.4 Seconds (9.8-13.1) H 09/01/17 06:35 INR 1.2 (0.9-1.2) 09/01/17 06:35 APTT 28.4 Seconds (25.6-37.1) 09/01/17 06:35 - Head Exam Head Exam: ATRAUMATIC, NORMAL INSPECTION, NORMOCEPHALIC - Eye Exam Eye Exam: EOMI, Normal appearance, PERRL Pupil Exam: NORMAL ACCOMODATION, PERRL - ENT Exam ENT Exam: Mucous Membranes Moist, Normal Exam - Neck Exam Neck Exam: Full ROM - Respiratory Exam Respiratory Exam: Clear to Ausculation Bilateral, NORMAL BREATHING PATTERN - Cardiovascular Exam Cardiovascular Exam: REGULAR RHYTHM - GI/Abdominal Exam GI & Abdominal Exam: Normal Bowel Sounds - Rectal Exam Rectal Exam: NORMAL INSPECTION - Exam External exam: NORMAL EXTERNAL EXAM - Extremities Exam Extremities Exam: Full ROM, Normal Capillary Refill, Normal Inspection - Back Exam Back Exam: NORMAL INSPECTION - Neurological Exam Neurological Exam: Alert, Awake Neuro motor strength exam: Left Upper Extremity: 4, Right Upper Extremity: 4, Left Lower Extremity: 3, Right Lower Extremity: 4 - Psychiatric Exam Psychiatric exam: Normal Affect, Normal Mood - Skin Skin Exam: Dry, Normal Color Assessment and Plan (1) Left knee DJD Assessment & Plan: continue on cpm, monitor skin, physical, occupational therapy equipment eval Status: Acute
[2017-09-05] MEDS: Oxycodone/Acetaminophen 5/325 mg Tab PO PRN ×5 (05:03→21:53)
[2017-09-05] MEDS: Enoxaparin 40 mg Syringe SC SCH (08:10)
--- NOTE | 2017-09-05 15:53 | CP.PCM.PN ---
Subjective - Date & Time of Evaluation Date of Evaluation: 09/05/17 Time of Evaluation: 12:00 - Subjective Subjective: Patient seen and examined at bedside comfortable. No new complaints. Objective - Vital Signs/Intake and Output Vital Signs (last 24 hours): Temp Pulse Resp BP Pulse Ox 98.4 F 79 20 117/62 100 09/05/17 07:59 09/05/17 08:10 09/05/17 07:59 09/05/17 08:10 09/05/17 07:59 - Medications Medications: Current Medications Acetaminophen (Tylenol 325mg Tab) 650 mg PO Q4 PRN PRN Reason: Fever 101 degrees fahrenheit Acetaminophen (Tylenol 325mg Tab) 650 mg PO Q4 PRN PRN Reason: Pain, Mild (1-3) Last Admin: 09/01/17 16:35 Dose: 650 mg Diphenhydramine HCl (Benadryl) 25 mg PO HS PRN PRN Reason: Itching / Pruritus Last Admin: 09/02/17 21:25 Dose: 25 mg Docusate Sodium (Colace) 100 mg PO BID [facility] Last Admin: 09/05/17 08:10 Dose: 100 mg Emollient Ointment (Vaseline Oint) 1 pkt TOP QID PRN PRN Reason: dry lips Enoxaparin Sodium (Lovenox) 40 mg SC DAILY [facility] PRN Reason: Protocol Last Admin: 09/05/17 08:10 Dose: 40 mg Hydrochlorothiazide (Hydrodiuril) 25 mg PO DAILY [facility] Last Admin: 09/05/17 08:10 Dose: 25 mg Lisinopril (Zestril) 20 mg PO DAILY [facility] Last Admin: 09/05/17 08:10 Dose: 20 mg Oxycodone/Acetaminophen (Percocet 5/325 Mg Tab) 2 tab PO Q4 PRN PRN Reason: Pain, severe (8-10) Stop: 09/07/17 14:55 Last Admin: 09/05/17 13:34 Dose: 2 tab Oxycodone/Acetaminophen (Percocet 5/325 Mg Tab) 1 tab PO Q4 PRN PRN Reason: Pain, moderate (4-7) Stop: 09/07/17 19:34 Last Admin: 09/05/17 05:03 Dose: 1 tab - Labs Labs: 09/01/17 06:35 09/01/17 06:35 PT 13.4 Seconds (9.8-13.1) H 18 06:35 INR 1.2 (0.9-1.2) 09/01/17 06:35 APTT 28.4 Seconds (25.6-37.1) 09/01/17 06:35 - Extremities Exam Additional comments: L knee: BRADFORD dressing intact with mild dry serous drainage. BRADFORD removed revealing wound CDI. minimal tenderness. mild-mod swelling sensation intact SP/DP/TN motor intact EHL/FHL/TA/G/Q/HS/HF pedal pulses intact comp soft NT Assessment and Plan (1) Left knee DJD Assessment & Plan: POD# 7 s/p L TKA doing well. -wound to air -PT/OT WBAT -CPM as per order -knee imm while in bed -orthopedically stable -above d/w Dr. Parker in agreement Status: Acute
--- NOTE | 2017-09-05 18:52 | CP.PCM.PN ---
Subjective - Date & Time of Evaluation Date of Evaluation: 09/05/17 Time of Evaluation: 12:00 - Subjective Subjective: no acute complaints at present Objective - Vital Signs/Intake and Output Vital Signs (last 24 hours): Temp Pulse Resp BP Pulse Ox 97.0 F L 84 20 106/70 100 09/05/17 16:41 09/05/17 16:41 09/05/17 16:41 09/05/17 16:41 09/05/17 16:41 - Medications Medications: Current Medications Acetaminophen (Tylenol 325mg Tab) 650 mg PO Q4 PRN PRN Reason: Fever 101 degrees fahrenheit Acetaminophen (Tylenol 325mg Tab) 650 mg PO Q4 PRN PRN Reason: Pain, Mild (1-3) Last Admin: 09/01/17 16:35 Dose: 650 mg Diphenhydramine HCl (Benadryl) 25 mg PO HS PRN PRN Reason: Itching / Pruritus Last Admin: 09/02/17 21:25 Dose: 25 mg Docusate Sodium (Colace) 100 mg PO BID [facility] Last Admin: 09/05/17 17:19 Dose: 100 mg Emollient Ointment (Vaseline Oint) 1 pkt TOP QID PRN PRN Reason: dry lips Enoxaparin Sodium (Lovenox) 40 mg SC DAILY [facility] PRN Reason: Protocol Last Admin: 09/05/17 08:10 Dose: 40 mg Hydrochlorothiazide (Hydrodiuril) 25 mg PO DAILY [facility] Last Admin: 09/05/17 08:10 Dose: 25 mg Lisinopril (Zestril) 20 mg PO DAILY [facility] Last Admin: 09/05/17 08:10 Dose: 20 mg Oxycodone/Acetaminophen (Percocet 5/325 Mg Tab) 2 tab PO Q4 PRN PRN Reason: Pain, severe (8-10) Stop: 09/07/17 14:55 Last Admin: 09/05/17 17:22 Dose: 2 tab Oxycodone/Acetaminophen (Percocet 5/325 Mg Tab) 1 tab PO Q4 PRN PRN Reason: Pain, moderate (4-7) Stop: 09/07/17 19:34 Last Admin: 09/05/17 05:03 Dose: 1 tab - Labs Labs: 09/01/17 06:35 09/01/17 06:35 PT 13.4 Seconds (9.8-13.1) H 09/01/17 06:35 INR 1.2 (0.9-1.2) 09/01/17 06:35 APTT 28.4 Seconds (25.6-37.1) 09/01/17 06:35 - Head Exam Head Exam: ATRAUMATIC, NORMAL INSPECTION, NORMOCEPHALIC - Eye Exam Eye Exam: EOMI, Normal appearance Pupil Exam: NORMAL ACCOMODATION, PERRL - ENT Exam ENT Exam: Mucous Membranes Moist, Normal Exam - Neck Exam Neck Exam: Normal Inspection - Respiratory Exam Respiratory Exam: Clear to Ausculation Bilateral, NORMAL BREATHING PATTERN - Cardiovascular Exam Cardiovascular Exam: REGULAR RHYTHM - GI/Abdominal Exam GI & Abdominal Exam: Soft, Normal Bowel Sounds - Rectal Exam Rectal Exam: NORMAL INSPECTION - Exam External exam: NORMAL EXTERNAL EXAM - Extremities Exam Extremities Exam: Normal Capillary Refill, Normal Inspection - Back Exam Back Exam: NORMAL INSPECTION - Neurological Exam Neurological Exam: Alert, Awake Neuro motor strength exam: Left Upper Extremity: 4, Right Upper Extremity: 4, Left Lower Extremity: 3, Right Lower Extremity: 4 - Psychiatric Exam Psychiatric exam: Normal Affect, Normal Mood - Skin Skin Exam: Intact, Normal Color Assessment and Plan (1) Left knee DJD Assessment & Plan: LTKR to continue with rehab therapy, monitor skin, PT and OT therapy Status: Acute
[2017-09-06] MEDS: Oxycodone/Acetaminophen 5/325 mg Tab PO PRN ×4 (05:39→21:07)
[2017-09-06] MEDS: Enoxaparin 40 mg Syringe SC SCH (08:25)
--- NOTE | 2017-09-06 09:48 | CP.PCM.PN ---
Subjective - Date & Time of Evaluation Date of Evaluation: 09/06/17 Time of Evaluation: 09:47 - Subjective Subjective: Patient states she did not sleep well last night because she woke up with pain and muscles in leg twitching. SHe says she was trying to take less pain medication, b ut that she was unable to sleep without it. Denies CP/SOB/ dizziness. Objective - Vital Signs/Intake and Output Vital Signs (last 24 hours): Temp Pulse Resp BP Pulse Ox 97.7 F 81 20 128/64 97 09/06/17 08:23 09/06/17 08:25 09/06/17 08:23 09/06/17 08:25 09/06/17 08:23 - Medications Medications: Current Medications Acetaminophen (Tylenol 325mg Tab) 650 mg PO Q4 PRN PRN Reason: Fever 101 degrees fahrenheit Acetaminophen (Tylenol 325mg Tab) 650 mg PO Q4 PRN PRN Reason: Pain, Mild (1-3) Last Admin: 09/01/17 16:35 Dose: 650 mg Cyclobenzaprine HCl (Flexeril) 10 mg PO HS PRN PRN Reason: Muscle spasm Diphenhydramine HCl (Benadryl) 25 mg PO HS PRN PRN Reason: Itching / Pruritus Last Admin: 09/02/17 21:25 Dose: 25 mg Docusate Sodium (Colace) 100 mg PO BID [facility] Last Admin: 09/06/17 08:24 Dose: 100 mg Emollient Ointment (Vaseline Oint) 1 pkt TOP QID PRN PRN Reason: dry lips Enoxaparin Sodium (Lovenox) 40 mg SC DAILY [facility] PRN Reason: Protocol Last Admin: 09/06/17 08:25 Dose: 40 mg Hydrochlorothiazide (Hydrodiuril) 25 mg PO DAILY [facility] Last Admin: 09/06/17 08:25 Dose: 25 mg Lisinopril (Zestril) 20 mg PO DAILY [facility] Last Admin: 09/06/17 08:25 Dose: 20 mg Oxycodone/Acetaminophen (Percocet 5/325 Mg Tab) 2 tab PO Q4 PRN PRN Reason: Pain, severe (8-10) Stop: 09/07/17 14:55 Last Admin: 09/06/17 09:11 Dose: 2 tab Oxycodone/Acetaminophen (Percocet 5/325 Mg Tab) 1 tab PO Q4 PRN PRN Reason: Pain, moderate (4-7) Stop: 09/07/17 19:34 Last Admin: 09/06/17 05:39 Dose: 1 tab - Labs Labs: 09/01/17 06:35 09/01/17 06:35 PT 13.4 Seconds (9.8-13.1) H 09/01/17 06:35 INR 1.2 (0.9-1.2) 09/01/17 06:35 APTT 28.4 Seconds (25.6-37.1) 09/01/17 06:35 - Extremities Exam Additional comments: Left knee: Incision intact, no erythema, dry. +ROM ankle/toes, senastion intact , calves osft NT neg homans Assessment and Plan (1) Left knee DJD Assessment & Plan: POD#8 s/p left TKR cont PT/OT, VTE proph, ortho stable will add flexeril at night to help with pain/spasms d/w Dr. Parker, agrees with above Status: Acute
--- NOTE | 2017-09-06 12:16 | CP.PCM.PN ---
Subjective - Date & Time of Evaluation Date of Evaluation: 09/06/17 Time of Evaluation: 12:00 - Subjective Subjective: Patient seen and examined during physical therapy. States she is doing well. Tolerating PT well. Pain controlled. No new complaints. Objective - Vital Signs/Intake and Output Vital Signs (last 24 hours): Temp Pulse Resp BP Pulse Ox 97.7 F 81 20 128/64 97 09/06/17 08:23 09/06/17 08:25 09/06/17 08:23 09/06/17 08:25 09/06/17 08:23 - Medications Medications: Current Medications Acetaminophen (Tylenol 325mg Tab) 650 mg PO Q4 PRN PRN Reason: Fever 101 degrees fahrenheit Acetaminophen (Tylenol 325mg Tab) 650 mg PO Q4 PRN PRN Reason: Pain, Mild (1-3) Last Admin: 09/01/17 16:35 Dose: 650 mg Cyclobenzaprine HCl (Flexeril) 10 mg PO HS PRN PRN Reason: Muscle spasm Diphenhydramine HCl (Benadryl) 25 mg PO HS PRN PRN Reason: Itching / Pruritus Last Admin: 09/02/17 21:25 Dose: 25 mg Docusate Sodium (Colace) 100 mg PO BID [facility] Last Admin: 09/06/17 08:24 Dose: 100 mg Emollient Ointment (Vaseline Oint) 1 pkt TOP QID PRN PRN Reason: dry lips Enoxaparin Sodium (Lovenox) 40 mg SC DAILY [facility] PRN Reason: Protocol Last Admin: 09/06/17 08:25 Dose: 40 mg Hydrochlorothiazide (Hydrodiuril) 25 mg PO DAILY [facility] Last Admin: 09/06/17 08:25 Dose: 25 mg Lisinopril (Zestril) 20 mg PO DAILY [facility] Last Admin: 09/06/17 08:25 Dose: 20 mg Oxycodone/Acetaminophen (Percocet 5/325 Mg Tab) 2 tab PO Q4 PRN PRN Reason: Pain, severe (8-10) Stop: 09/07/17 14:55 Last Admin: 09/06/17 09:11 Dose: 2 tab Oxycodone/Acetaminophen (Percocet 5/325 Mg Tab) 1 tab PO Q4 PRN PRN Reason: Pain, moderate (4-7) Stop: 09/07/17 19:34 Last Admin: 09/06/17 05:39 Dose: 1 tab - Labs Labs: 09/01/17 06:35 09/01/17 06:35 PT 13.4 Seconds (9.8-13.1) H 09/01/17 06:35 INR 1.2 (0.9-1.2) 09/01/17 06:35 APTT 28.4 Seconds (25.6-37.1) 09/01/17 06:35 - Additional Findings Additional findings: Physical exam: Constitutional- cooperative, awake, alert Head- NCAT, PERRL Eye- PERRL, EOMI ENT- normal exam, MMM. Neck- normal inspection, supple, no JVD Respiratory- CTAB, no wheezes rales rhonchi Cardiovascular- RRR, +S1, +S2 no MRG GI/Abdominal- normal bowel sounds, soft, no mass, no hsm Skin- warm, dry Extremities Exam- normal capillary refill, normal inspection Neurological Exam- alert, awake, oriented Psych- normal mood, normal affect Assessment and Plan - Assessment and Plan (Free Text) Plan: 51 yo female with history of HLD, HTN and OA had left TKR on 08/29/2017 after failing conservative management. She was transferred to TCU for continuation of PT. 1. Osteoarthritis of the Left Knee POD # 8 pain well controlled continue PT/OT 2. HTN BP stable continue Lisinopril and HCTZ 3. DVT prophylaxis on Lovenox 40mg SC daily
[2017-09-07] MEDS ORDERED: Magnesium Hydroxide Susp 30 ml UD PO PRN (05:45)
[2017-09-07] MEDS: Oxycodone/Acetaminophen 5/325 mg Tab PO PRN ×4 (06:12→22:19)
[2017-09-07] MEDS: Enoxaparin 40 mg Syringe SC SCH (09:18)
--- NOTE | 2017-09-07 12:11 | CP.PCM.PN ---
Subjective - Date & Time of Evaluation Date of Evaluation: 09/07/17 Time of Evaluation: 12:08 - Subjective Subjective: Patient erin PT, no new complaints. Objective - Vital Signs/Intake and Output Vital Signs (last 24 hours): Temp Pulse Resp BP Pulse Ox 97.8 F 85 20 119/69 100 09/07/17 07:59 09/07/17 09:18 09/07/17 07:59 09/07/17 09:18 09/07/17 07:59 - Medications Medications: Current Medications Acetaminophen (Tylenol 325mg Tab) 650 mg PO Q4 PRN PRN Reason: Fever 101 degrees fahrenheit Acetaminophen (Tylenol 325mg Tab) 650 mg PO Q4 PRN PRN Reason: Pain, Mild (1-3) Last Admin: 09/01/17 16:35 Dose: 650 mg Cyclobenzaprine HCl (Flexeril) 10 mg PO HS PRN PRN Reason: Muscle spasm Last Admin: 09/06/17 21:07 Dose: 10 mg Diphenhydramine HCl (Benadryl) 25 mg PO HS PRN PRN Reason: Itching / Pruritus Last Admin: 09/02/17 21:25 Dose: 25 mg Docusate Sodium (Colace) 100 mg PO BID [facility] Last Admin: 09/07/17 09:17 Dose: 100 mg Emollient Ointment (Vaseline Oint) 1 pkt TOP QID PRN PRN Reason: dry lips Enoxaparin Sodium (Lovenox) 40 mg SC DAILY [facility] PRN Reason: Protocol Last Admin: 09/07/17 09:18 Dose: 40 mg Hydrochlorothiazide (Hydrodiuril) 25 mg PO DAILY [facility] Last Admin: 09/07/17 09:17 Dose: 25 mg Lisinopril (Zestril) 20 mg PO DAILY [facility] Last Admin: 09/07/17 09:18 Dose: 20 mg Magnesium Hydroxide (Milk Of Magnesia) 30 ml PO DAILY PRN PRN Reason: Constipation Last Admin: 09/07/17 09:52 Dose: 30 ml Oxycodone/Acetaminophen (Percocet 5/325 Mg Tab) 2 tab PO Q4 PRN PRN Reason: Pain, severe (8-10) Stop: 09/07/17 14:55 Last Admin: 09/07/17 09:52 Dose: 2 tab Oxycodone/Acetaminophen (Percocet 5/325 Mg Tab) 1 tab PO Q4 PRN PRN Reason: Pain, moderate (4-7) Stop: 09/07/17 19:34 Last Admin: 09/07/17 06:12 Dose: 1 tab Sennosides (Senokot Tab) 17.2 mg PO HS [facility] - Labs Labs: 09/01/17 06:35 09/01/17 06:35 PT 13.4 Seconds (9.8-13.1) H 09/01/17 06:35 INR 1.2 (0.9-1.2) 09/01/17 06:35 APTT 28.4 Seconds (25.6-37.1) 09/01/17 06:35 - Extremities Exam Additional comments: +ROM ankle/toes, sensation intact, incision intact, dry, no erythema calves soft NT neg hoamsn Assessment and Plan (1) Left knee DJD Assessment & Plan: POD#9 s/p left TKR cont PT/OT, VTE proph, ortho stable will add flexeril at night to help with pain/spasms d/w Dr. Parker, agrees with above Status: Acute
--- NOTE | 2017-09-07 13:22 | CP.PCM.PN ---
Subjective - Date & Time of Evaluation Date of Evaluation: 09/07/17 Time of Evaluation: 10:30 - Subjective Subjective: no acute neck or back pain or knee pain Objective - Vital Signs/Intake and Output Vital Signs (last 24 hours): Temp Pulse Resp BP Pulse Ox 97.8 F 85 20 119/69 100 09/07/17 07:59 09/07/17 09:18 09/07/17 07:59 09/07/17 09:18 09/07/17 07:59 - Medications Medications: Current Medications Acetaminophen (Tylenol 325mg Tab) 650 mg PO Q4 PRN PRN Reason: Fever 101 degrees fahrenheit Acetaminophen (Tylenol 325mg Tab) 650 mg PO Q4 PRN PRN Reason: Pain, Mild (1-3) Last Admin: 09/01/17 16:35 Dose: 650 mg Cyclobenzaprine HCl (Flexeril) 10 mg PO HS PRN PRN Reason: Muscle spasm Last Admin: 09/06/17 21:07 Dose: 10 mg Diphenhydramine HCl (Benadryl) 25 mg PO HS PRN PRN Reason: Itching / Pruritus Last Admin: 09/02/17 21:25 Dose: 25 mg Docusate Sodium (Colace) 100 mg PO BID [facility] Last Admin: 09/07/17 09:17 Dose: 100 mg Emollient Ointment (Vaseline Oint) 1 pkt TOP QID PRN PRN Reason: dry lips Enoxaparin Sodium (Lovenox) 40 mg SC DAILY [facility] PRN Reason: Protocol Last Admin: 09/07/17 09:18 Dose: 40 mg Hydrochlorothiazide (Hydrodiuril) 25 mg PO DAILY [facility] Last Admin: 09/07/17 09:17 Dose: 25 mg Lisinopril (Zestril) 20 mg PO DAILY [facility] Last Admin: 09/07/17 09:18 Dose: 20 mg Magnesium Hydroxide (Milk Of Magnesia) 30 ml PO DAILY PRN PRN Reason: Constipation Last Admin: 09/07/17 09:52 Dose: 30 ml Oxycodone/Acetaminophen (Percocet 5/325 Mg Tab) 2 tab PO Q4 PRN PRN Reason: Pain, severe (8-10) Stop: 09/07/17 14:55 Last Admin: 09/07/17 09:52 Dose: 2 tab Oxycodone/Acetaminophen (Percocet 5/325 Mg Tab) 1 tab PO Q4 PRN PRN Reason: Pain, moderate (4-7) Stop: 09/07/17 19:34 Last Admin: 09/07/17 06:12 Dose: 1 tab Sennosides (Senokot Tab) 17.2 mg PO HS [facility] - Labs Labs: 09/01/17 06:35 09/01/17 06:35 PT 13.4 Seconds (9.8-13.1) H 09/01/17 06:35 INR 1.2 (0.9-1.2) 09/01/17 06:35 APTT 28.4 Seconds (25.6-37.1) 09/01/17 06:35 - Head Exam Head Exam: ATRAUMATIC, NORMAL INSPECTION, NORMOCEPHALIC - Eye Exam Eye Exam: EOMI, Normal appearance, PERRL Pupil Exam: NORMAL ACCOMODATION - ENT Exam ENT Exam: Mucous Membranes Moist, Normal Exam - Neck Exam Neck Exam: Normal Inspection - Respiratory Exam Respiratory Exam: Clear to Ausculation Bilateral, NORMAL BREATHING PATTERN - Cardiovascular Exam Cardiovascular Exam: REGULAR RHYTHM - GI/Abdominal Exam GI & Abdominal Exam: Soft, Normal Bowel Sounds - Rectal Exam Rectal Exam: NORMAL INSPECTION - Exam External exam: NORMAL EXTERNAL EXAM - Extremities Exam Extremities Exam: Full ROM, Normal Capillary Refill - Back Exam Back Exam: NORMAL INSPECTION - Neurological Exam Neurological Exam: Alert, Awake Neuro motor strength exam: Left Upper Extremity: 4, Right Upper Extremity: 4, Left Lower Extremity: 3, Right Lower Extremity: 4 - Psychiatric Exam Psychiatric exam: Normal Affect, Normal Mood - Skin Skin Exam: Dry, Intact Assessment and Plan (1) Left knee DJD Assessment & Plan: quad strenghtening, rom, transfers and gait training pt ot Status: Acute
[2017-09-08] MEDS: Oxycodone/Acetaminophen 5/325 mg Tab PO PRN ×5 (03:20→23:01)
[2017-09-08] MEDS: Enoxaparin 40 mg Syringe SC SCH (08:26)
--- NOTE | 2017-09-08 13:30 | CP.PCM.PN ---
Subjective - Date & Time of Evaluation Date of Evaluation: 09/08/17 Time of Evaluation: 13:15 - Subjective Subjective: S- pt with no post op discomfort Objective - Vital Signs/Intake and Output Vital Signs (last 24 hours): Temp Pulse Resp BP Pulse Ox 98.1 F 77 20 122/65 98 09/08/17 09:00 09/08/17 09:00 09/08/17 09:00 09/08/17 09:00 09/08/17 09:00 - Medications Medications: Current Medications Acetaminophen (Tylenol 325mg Tab) 650 mg PO Q4 PRN PRN Reason: Fever 101 degrees fahrenheit Acetaminophen (Tylenol 325mg Tab) 650 mg PO Q4 PRN PRN Reason: Pain, Mild (1-3) Last Admin: 09/01/17 16:35 Dose: 650 mg Cyclobenzaprine HCl (Flexeril) 10 mg PO HS PRN PRN Reason: Muscle spasm Last Admin: 09/06/17 21:07 Dose: 10 mg Diphenhydramine HCl (Benadryl) 25 mg PO HS PRN PRN Reason: Itching / Pruritus Last Admin: 09/02/17 21:25 Dose: 25 mg Docusate Sodium (Colace) 100 mg PO BID [facility] Last Admin: 09/08/17 08:26 Dose: 100 mg Emollient Ointment (Vaseline Oint) 1 pkt TOP QID PRN PRN Reason: dry lips Enoxaparin Sodium (Lovenox) 40 mg SC DAILY [facility] PRN Reason: Protocol Last Admin: 09/08/17 08:26 Dose: 40 mg Hydrochlorothiazide (Hydrodiuril) 25 mg PO DAILY [facility] Last Admin: 09/08/17 08:26 Dose: 25 mg Lisinopril (Zestril) 20 mg PO DAILY [facility] Last Admin: 09/08/17 08:26 Dose: 20 mg Magnesium Hydroxide (Milk Of Magnesia) 30 ml PO DAILY PRN PRN Reason: Constipation Last Admin: 09/07/17 09:52 Dose: 30 ml Oxycodone/Acetaminophen (Percocet 5/325 Mg Tab) 1 tab PO Q4 PRN PRN Reason: for pain level 4-7 Stop: 09/11/17 01:01 Last Admin: 09/08/17 08:26 Dose: 1 tab Oxycodone/Acetaminophen (Percocet 5/325 Mg Tab) 2 tab PO Q4 PRN PRN Reason: for pain level 8-10 Stop: 09/10/17 21:57 Sennosides (Senokot Tab) 17.2 mg PO HS [facility] Last Admin: 09/07/17 23:56 Dose: Not Given - Labs Labs: 09/01/17 06:35 09/01/17 06:35 PT 13.4 Seconds (9.8-13.1) H 09/01/17 06:35 INR 1.2 (0.9-1.2) 09/01/17 06:35 APTT 28.4 Seconds (25.6-37.1) 09/01/17 06:35 - Additional Findings Additional findings: Objective pt OOB and comfortable orthopediclly stable wouynd beign no sepsis/calf tenderness Assessment and Plan - Assessment and Plan (Free Text) Assessment: A- L TKR_ excellent progress P- physio full weight bearing active/passive ROM
--- NOTE | 2017-09-08 18:46 | CP.PCM.PN ---
Subjective - Date & Time of Evaluation Date of Evaluation: 09/08/17 Time of Evaluation: 12:10 - Subjective Subjective: no acute complaints of any knee pain Objective - Vital Signs/Intake and Output Vital Signs (last 24 hours): Temp Pulse Resp BP Pulse Ox 98 F 80 20 123/65 97 09/08/17 17:16 09/08/17 17:16 09/08/17 17:16 09/08/17 17:16 09/08/17 17:16 - Medications Medications: Current Medications Acetaminophen (Tylenol 325mg Tab) 650 mg PO Q4 PRN PRN Reason: Fever 101 degrees fahrenheit Acetaminophen (Tylenol 325mg Tab) 650 mg PO Q4 PRN PRN Reason: Pain, Mild (1-3) Last Admin: 09/01/17 16:35 Dose: 650 mg Cyclobenzaprine HCl (Flexeril) 10 mg PO HS PRN PRN Reason: Muscle spasm Last Admin: 09/06/17 21:07 Dose: 10 mg Diphenhydramine HCl (Benadryl) 25 mg PO HS PRN PRN Reason: Itching / Pruritus Last Admin: 09/02/17 21:25 Dose: 25 mg Docusate Sodium (Colace) 100 mg PO BID COUNTS INCLUDE 234 BEDS AT THE [facility] Last Admin: 09/08/17 16:11 Dose: 100 mg Emollient Ointment (Vaseline Oint) 1 pkt TOP QID PRN PRN Reason: dry lips Enoxaparin Sodium (Lovenox) 40 mg SC DAILY COUNTS INCLUDE 234 BEDS AT THE [facility] PRN Reason: Protocol Last Admin: 09/08/17 08:26 Dose: 40 mg Hydrochlorothiazide (Hydrodiuril) 25 mg PO DAILY COUNTS INCLUDE 234 BEDS AT THE [facility] Last Admin: 09/08/17 08:26 Dose: 25 mg Lisinopril (Zestril) 20 mg PO DAILY COUNTS INCLUDE 234 BEDS AT THE [facility] Last Admin: 09/08/17 08:26 Dose: 20 mg Magnesium Hydroxide (Milk Of Magnesia) 30 ml PO DAILY PRN PRN Reason: Constipation Last Admin: 09/07/17 09:52 Dose: 30 ml Oxycodone/Acetaminophen (Percocet 5/325 Mg Tab) 1 tab PO Q4 PRN PRN Reason: for pain level 4-7 Stop: 09/11/17 01:01 Last Admin: 09/08/17 18:20 Dose: 1 tab Oxycodone/Acetaminophen (Percocet 5/325 Mg Tab) 2 tab PO Q4 PRN PRN Reason: for pain level 8-10 Stop: 09/10/17 21:57 Last Admin: 09/08/17 13:36 Dose: 2 tab Sennosides (Senokot Tab) 17.2 mg PO HS JUSTUS Last Admin: 09/07/17 23:56 Dose: Not Given - Labs Labs: 09/01/17 06:35 09/01/17 06:35 PT 13.4 Seconds (9.8-13.1) H 09/01/17 06:35 INR 1.2 (0.9-1.2) 09/01/17 06:35 APTT 28.4 Seconds (25.6-37.1) 09/01/17 06:35 - Head Exam Head Exam: ATRAUMATIC, NORMAL INSPECTION, NORMOCEPHALIC - Eye Exam Eye Exam: EOMI, Normal appearance Pupil Exam: NORMAL ACCOMODATION, PERRL - ENT Exam ENT Exam: Mucous Membranes Moist - Neck Exam Neck Exam: Normal Inspection - Respiratory Exam Respiratory Exam: Clear to Ausculation Bilateral, NORMAL BREATHING PATTERN - Cardiovascular Exam Cardiovascular Exam: REGULAR RHYTHM - GI/Abdominal Exam GI & Abdominal Exam: Soft, Normal Bowel Sounds - Rectal Exam Rectal Exam: NORMAL INSPECTION - Exam External exam: NORMAL EXTERNAL EXAM - Extremities Exam Extremities Exam: Full ROM, Normal Capillary Refill, Normal Inspection - Back Exam Back Exam: NORMAL INSPECTION - Neurological Exam Neurological Exam: Alert, Awake Neuro motor strength exam: Left Upper Extremity: 4, Right Upper Extremity: 4, Left Lower Extremity: 3 (healing with kenneth), Right Lower Extremity: 4 - Psychiatric Exam Psychiatric exam: Normal Affect - Skin Skin Exam: Dry, Normal Color, Warm Assessment and Plan (1) Left knee DJD Assessment & Plan: discussed Dc planning received the hip kit, status post Pt, ot therapy Status: Acute
[2017-09-09] MEDS: Oxycodone/Acetaminophen 5/325 mg Tab PO PRN ×3 (04:24→12:29)
[2017-09-09 08:18] VITALS: BP 114/56; PULSE 83
[2017-09-09] MEDS: Enoxaparin 40 mg Syringe SC SCH (08:18)
[2017-09-09 08:19] VITALS: TEMP 98.4; O2SAT 94
--- NOTE | 2017-09-09 11:53 | CP.PCM.DIS ---
Provider - Provider Date of Admission: 08/31/17 22:11 Attending physician: Phoenix Taylor Primary care physician: Wade Parker III, MD Consults: Dr Keith Lopez Time Spent in preparation of Discharge (in minutes): 25 Diagnosis - Discharge Diagnosis (1) Status post total knee replacement, left Status: Acute Comment: continue outpatient PT (2) HTN (hypertension) Status: Chronic Comment: BP stable. continue Lisinopril Hospital Course - Lab Results Lab Results: Most Recent Lab Values WBC 4.6 K/uL (4.8-10.8) L 09/01/17 06:35 RBC 3.88 Mil/uL (3.80-5.20) 09/01/17 06:35 Hgb 10.9 g/dL (12.0-16.0) L 09/01/17 06:35 Hct 33.0 % (34.0-47.0) L 09/01/17 06:35 MCV 85.0 fl (81.0-99.0) 09/01/17 06:35 MCH 28.1 pg (27.0-31.0) 09/01/17 06:35 MCHC 33.1 g/dL (33.0-37.0) 09/01/17 06:35 RDW 14.6 % (11.5-14.5) H 09/01/17 06:35 Plt Count 154 K/uL (130-400) 09/01/17 06:35 PT 13.4 Seconds (9.8-13.1) H 09/01/17 06:35 INR 1.2 (0.9-1.2) 09/01/17 06:35 APTT 28.4 Seconds (25.6-37.1) 09/01/17 06:35 Sodium 137 mmol/l (132-148) 09/01/17 06:35 Potassium 4.0 MMOL/L (3.6-5.0) 09/01/17 06:35 Chloride 97 mmol/L (98-107) L 09/01/17 06:35 Carbon Dioxide 29 mmol/L (22-30) 09/01/17 06:35 Anion Gap 15 (10-20) 09/01/17 06:35 BUN 8 mg/dl (7-17) 09/01/17 06:35 Creatinine 0.8 mg/dl (0.7-1.2) 09/01/17 06:35 Est GFR ( Amer) > 60 09/01/17 06:35 Est GFR (Non-Af Amer) > 60 09/01/17 06:35 Random Glucose 92 mg/dL (65-105) 09/01/17 06:35 Calcium 9.6 mg/dL (8.4-10.2) 09/01/17 06:35 - Hospital Course Hospital Course: 51 yo female with history of HTN, HLD and OA had left TKR on 08/29/2017 after failing conservative management. Did well post op and was transferred to TCU for rehab. Patient completed therapy and now is ready for discharge. Discharge Exam - Head Exam Head Exam: ATRAUMATIC, NORMAL INSPECTION, NORMOCEPHALIC - Eye Exam Eye Exam: absent: Scleral icterus - ENT Exam ENT Exam: Mucous Membranes Moist - Respiratory Exam Respiratory Exam: absent: Rales, Rhonchi, Wheezes, Respiratory Distress - Cardiovascular Exam Cardiovascular Exam: REGULAR RHYTHM, +S1, +S2 - GI/Abdominal Exam GI & Abdominal Exam: Soft. absent: Tenderness - Rectal Exam Rectal Exam: Deferred - Neurological Exam Neurological exam: Alert, Oriented x3 - Psychiatric Exam Psychiatric exam: Normal Affect - Skin Skin Exam: Dry, Intact Discharge Plan - Discharge Medications Prescriptions: Magnesium Hydroxide [Milk Of Magnesia] 30 ml PO DAILY PRN #30 udc PRN Reason: Constipation oxyCODONE/Acetaminophen [Percocet 5/325 mg Tab] 1 tab PO Q4 PRN #20 tab PRN Reason: for pain level 4-7 - Follow Up Plan Condition: GOOD Disposition: HOME/ ROUTINE Instructions: Preventing Falls in the Older Adult, Total Knee Replacement (DC) Additional Instructions: discharge patient home today. followup with Dr. Wade Parker, Orthopedic MD. Referrals: Wade Parker III, MD [Primary Care Provider] -
== END 2017-09-09 12:30 | disposition home or self-care (01) | DRG 561 ==
LOC: H.TCU 22:11
PROVIDERS: ADMIT Internal Medicine; ATTEND Internal Medicine
PROC: F07Z9FZ Gait Training/Functional Ambulation Treatment using Assistive, Adaptive, Supportive or Protective Equipment (ICD-10-PCS; principal; 2017-09-01)
PROC: F07M6FZ Therapeutic Exercise Treatment of Musculoskeletal System - Whole Body using Assistive, Adaptive, Supportive or Protective Equipment (ICD-10-PCS; 2017-09-01)
PROC: F08Z4FZ Home Management Treatment using Assistive, Adaptive, Supportive or Protective Equipment (ICD-10-PCS; 2017-09-01)
DX: Z47.1 Aftercare following joint replacement surgery (principal); M17.12 Unilateral primary osteoarthritis, left knee; Z90.710 Acquired absence of both cervix and uterus; Z96.652 Presence of left artificial knee joint; M19.90 Unspecified osteoarthritis, unspecified site; E78.5 Hyperlipidemia, unspecified; I10 Essential (primary) hypertension